=== PATIENT | female | born 1980 | race Caucasian/White ===

== ENCOUNTER 2016-11-16 06:51 | Day surgery (SDC) | payer BC ==
[~2016-11-16 06:51] MED LIST: Dextrose 5%-0.45% NaCl 1,000 ML IV SCH; Midazolam 1 MG/ML 2 ML SDV ONE; Sodium Chloride 0.9% 10 ML Syringe FLUSH PRN; fentaNYL 100 MCG/2 ML SDV ONE
[2016-11-16] MEDS ORDERED: Midazolam 1 MG/ML 2 ML SDV IV ONE ×3 (08:46→14:40)
[2016-11-16] MEDS ORDERED: fentaNYL 100 MCG/2 ML SDV IV ONE ×3 (08:46→14:40)
--- NOTE | 2016-11-16 09:37 | OR ---
DATE: 11/16/2016 PROCEDURE: Esophagogastroduodenoscopy and multiple pinch biopsies. INSTRUMENT USED: GIF-H180 Olympus video panendoscope. PREMEDICATIONS: No oral topical anesthesia used. Fentanyl 100 mcg intravenous, Versed 2 mg intravenous. Nasal O2 cannula. The procedure was done under pulse oximetry, BP recording, and teletypesetter monitor. INDICATION: The patient with persistent abdominal pain, dyspepsia, and bloating, unexplained, and not responsive to medical measures. Esophagogastroduodenoscopy is performed for detection of any active erosive lesions, Krause esophagus and/or malignancy also under consideration, H. pylori status to be determined, small bowel biopsies to be obtained for celiac disease if indicated, endoscopic hemostasis therapy if needed. DESCRIPTION OF PROCEDURE: The scope was passed with ease. Adequate visualization of the esophagus was made from proximal to distal areas. No upper esophageal lesions identified. No distal esophageal stricture. No uphill or downhill esophageal varices. No Kendra-Etienne tear. No evidence of erosive esophagitis by Liberty criteria. No esophageal polyp or tumor mass identified. Z-line was seen at around 40 cm distal to the oral verge, configuration consistent with grade 1 by ZAP classification. No proximal gastric varices noted. Gastric fundus examination by retroflexion showed no polypoid lesions. No gastric ulcer, polyp, tumor mass, or vascular ectasia identified. Duodenal bulb showed some patchy erythema. Visualized second part of the duodenum was unremarkable. Multiple pinch biopsies, 4 in number were taken from different areas of the second part of the duodenum, and tissues were also obtained from duodenal bulb at 9 o'clock and 12 o'clock positions and sent for any histopathologic evidence of celiac disease. Multiple pinch biopsies were obtained from the gastric antrum and proximal body and sent for PyloriTek test for H. pylori and histopathology. No bleeding was noted from any of the visualized areas at the completion of examination. Photographs were taken of the duodenal bulb, gastric antrum, fundus, and distal esophagus. IMPRESSION: Normal study. The patient tolerated the procedure well. [facility] /[id number]
[2016-11-16 11:42] VITALS: BP 126/80
== END 2016-11-16 10:50 | disposition home or self-care (01) ==
LOC: DL.ENDO 06:51
PROVIDERS: ATTEND Internal Medicine Gastroenterology
DX: K29.50 Unspecified chronic gastritis without bleeding (principal); K29.80 Duodenitis without bleeding; K31.89 Other diseases of stomach and duodenum; G43.909 Migraine, unspecified, not intractable, without status migrainosus; E66.9 Obesity, unspecified; Z90.49 Acquired absence of other specified parts of digestive tract; Z98.890 Other specified postprocedural states; Z79.899 Other long term (current) drug therapy
CPT/HCPCS: 43239; 87077; J2250; J3010; J7042

== ENCOUNTER 2018-01-01 14:53 | Emergency (ER) | payer BC ==
[2018-01-01 15:14] VITALS: BP 132/59
[2018-01-01] MEDS ORDERED: Sodium Chloride 0.9% 10 ML Syringe FLUSH PRN (15:23)
[2018-01-01] MEDS ORDERED: Ketorolac 30 MG/ML SDV IVPUSH ONE (15:23)
[2018-01-01] MEDS ORDERED: Diazepam 5 MG/ML 10 ML Vial MDV IVPUSH ONE (15:24)
--- NOTE | 2018-01-01 16:47 | CT ---
Clinical history: 37-year-old 165 pound female severe low back pain. No known trauma. Past history of "kidney stones". TECHNIQUE: Volume acquisition of data emergency unenhanced CT scan of the lumbar spine and sacrum obt ained without oral or IV contrast while patient was lying supine on the Siemens multi slice scanner [place], [place]. All data archived in the PACS system for storage, ref ormatting axial/sagittal/coronal planes and study. Interpretation: *No new abnormality lower thoracic, lumbar spine or sacrum appreciated in the interva l since [address] exam. 1. Homogeneous normal bone density and normal height/alignment of the T12, all 5 lumbar vertebra and the sacrum. 2. No sign of pathologic skeletal lesion. Subtle soft tissue disc "bulge" posteriorly at the L3-4, L4 -5 and L5-S1 levels. 3. No lumbar fracture or spondylolisthesis. No facet joint arthritis. 4. Normal intervertebral disc spacing. Minimal marginal spondylosis L4 vertebra. No other arthritic r eactive changes spine. 5. Symmetric spacing normal-appearing SI and both hip joints. 6. No signs of nephrolithiasis or obstructive uropathy.
--- NOTE | 2018-01-01 17:47 | EDM.PDOC ---
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 Patient states that she had a sudden jolt of low back pain and felt as if her entire back spasmed "locked up". She tried various stretching, over-the- counter analgesics and ice packs with no relief. She went to the chiropractor who told her that her back was to painful for him to help with and suggested that she come to the emergency department. She denies any radiating pain, loss of bowel or bladder control, saddle area of numbness or motor weakness. Onset: Today Duration: Getting Worse Location: Reports: Back Quality: Reports: Ache Severity: Severe Improves with: Reports: None Worsens with: Reports: None Associated Symptoms: Reports: No Other Symptoms Treatments HEALTH INSURANCE AGENT: Reports: NSAIDS Bilateral Middle Back Pain Score (Numeric/FACES): 10 - Related Data Allergies Allergy/AdvReac Type Severity Reaction Status Date / Time codeine Allergy Nausea and Verified 11/16/16 06:47 Vomiting Home Meds: Home Meds Ibuprofen [Motrin] 800 mg PO Q6H PRN 12/23/14 [History] Past Medical History HEENT History: Reports: Impaired Vision, Other (See Below) Other HEENT History: WEARS CORRECTIVE LENS WHEN DRIVING Cardiovascular History: Reports: None Respiratory History: Reports: None Gastrointestinal History: Genitourinary History: Reports: Other (See Below) Other Genitourinary History: NEPHROLITHIASIS [employer]PERATOR History: Reports: Musculoskeletal History: Reports: Back Pain, Chronic Neurological History: Reports: Migraines Psychiatric History: Reports: None Endocrine/Metabolic History: Reports: Obesity/BMI 30+ Hematologic History: Reports: None Immunologic History: Reports: None Oncologic (Cancer) History: Reports: None Dermatologic History: Reports: Cellulitis - Infectious Disease History Infectious Disease History: Reports: Chicken Pox - Past Surgical History Head Surgeries/Procedures: Reports: None Cardiovascular Surgical History: Reports: None Respiratory Surgical History: Reports: None GI Surgical History: Reports: Appendectomy Female Surgical History: Reports: Section, Lithotripsy/ESWL, Other ( See Below) Endocrine Surgical History: Reports: None Neurological Surgical History: Reports: None Musculoskeletal Surgical History: Reports: Other (See Below) Dermatological Surgical History: Reports: None Social & Family History - Family History Family Medical History: Noncontributory - Tobacco Use Smoking Status *Q: Never Smoker Second Hand Smoke Exposure: No - Caffeine Use Caffeine Use: Reports: Soda Other Caffeine Use: [place] DEW BOTTLE FEW TIMES A WEEK - Recreational Drug Use Recreational Drug Use: No - Living Situation & Occupation Living situation: Reports: Occupation: Employed ED ROS GENERAL - Review of Systems Review Of Systems: ROS reveals no pertinent complaints other than HPI. ED EXAM,LOWER BACK PAIN/INJURY - Physical Exam Exam: See Below Exam Limited By: No Limitations General Appearance: Other (uncomfortable appearing) Head: Atraumatic, Normocephalic Neck: Normal Inspection, Supple, Non-Tender, Full Range of Motion Respiratory/Chest: Other (hyperventilation) Cardiovascular: Normal Peripheral Pulses, Regular Rate, Rhythm, No Edema, No Gallop, No JVD, No Murmur, No Rub GI/Abdominal: Normal Bowel Sounds, Soft, Non-Tender, No Organomegaly, No Distention, No Abnormal Bruit, No Mass (Female) Exam: Deferred Rectal (Female) Exam: Deferred Back Exam: Decreased Range of Motion (lumbar), Muscle Spasm (generalized lumbar Rt>Left), Paraspinal Tenderness. No: CVA Tenderness (L), CVA Tenderness (R), Vertebral Tenderness Extremities: Non-Tender, No Pedal Edema, Normal Capillary Refill, Limited Range of Motion (due to back pain). No: Joint Swelling, Trisha's Sign, Leg Pain Neurological: Alert, Normal Dorsiflexion, CN II-XII Intact, Normal Plantar Flexion, Normal Reflexes, No Motor/Sensory Deficits Psychiatric: Anxious, Tearful Skin Exam: Warm, Dry, Intact, Normal Color, No Rash Course - Vital Signs Last Recorded V/S: Last Vital Signs Temp 36.4 C 01/01/18 15:00 Pulse 74 01/01/18 15:00 Resp 26 H 01/01/18 15:00 BP 132/59 L 01/01/18 15:00 Pulse Ox 100 01/01/18 15:00 - Orders/Labs/Meds Orders: Active Orders 24 hr Category Date Time Status Peripheral IV Care [RC] . DIRECTED Care 01/01/18 15:23 Active Sodium Chloride 0.9% [Saline Flush] Med 01/01/18 15:23 Active 10 ml FLUSH ASDIRECTED PRN Peripheral IV Insertion Adult [OM.PC] Stat Oth 01/01/18 15:23 Ordered Medication Orders Sodium Chloride (Saline Flush) 10 ml FLUSH ASDIRECTED PRN PRN Reason: Keep Vein Open Last Admin: 01/01/18 15:52 Dose: 10 ml Meds: Medications Generic Name Dose Route Start Last Admin Trade Name Freq PRN Reason Stop Dose Admin Sodium Chloride 10 ml 01/01/18 15:23 01/01/18 15:52 Saline Flush FLUSH 10 ml ASDIRECTED PRN Administration Keep Vein Open Discontinued Medications Generic Name Dose Route Start Last Admin Trade Name Freq PRN Reason Stop Dose Admin Diazepam 5 mg 01/01/18 15:24 01/01/18 15:49 Valium IVPUSH 01/01/18 15:25 5 mg ONETIME ONE Administration Ketorolac Tromethamine 30 mg 01/01/18 15:23 01/01/18 15:51 Toradol IVPUSH 01/01/18 15:24 30 mg ONETIME ONE Administration - Radiology Interpretation Free Text/Narrative:: CT lumbar spine: No new abnormality lower thoracic, lumbar spine or sacrum appreciated in the interval since November 14, 2016. See rad report. Departure - Departure Time of Disposition: 17:44 Disposition: Home, Self-Care 01 Condition: Fair Clinical Impression: Lumbar paraspinal muscle spasm Acute myofascial strain of lumbosacral region Qualifiers: Encounter type: initial encounter Qualified Code(s): S39.012A - Strain of muscle, fascia and tendon of lower back, initial encounter - Discharge Information Instructions: Lumbosacral Strain Referrals: PCP,None [Primary Care Provider] - Forms: ED Department Discharge Additional Instructions: RX: Decadron 4mg. RX: Diazepam 5mg. * DO NOT DRIVE WHILE UNDER THE INFLUENCE OF THIS MEDICATION. Light activity as tolerated. Follow up with your primary doctor or chiropractor in the next 2 to 3 days. - My Orders Last 24 Hours: My Active Orders 01/01/18 15:23 Peripheral IV Care [RC] . DIRECTED Sodium Chloride 0.9% [Saline Flush] 10 ml FLUSH ASDIRECTED PRN Peripheral IV Insertion Adult [OM.PC] Stat - Assessment/Plan Last 24 Hours: My Active Orders 01/01/18 15:23 Peripheral IV Care [RC] . DIRECTED Sodium Chloride 0.9% [Saline Flush] 10 ml FLUSH ASDIRECTED PRN Peripheral IV Insertion Adult [OM.PC] Stat I have read and agree with the documentation that has been completed regarding this visit. By signing this record, I attest that the documentation was completed in my physical presence and is an accurate record of the encounter.
== END 2018-01-01 17:54 | disposition home or self-care (01) ==
LOC: DL.ED 14:53
DX: S39.012A Strain of muscle, fascia and tendon of lower back, initial encounter (principal); M62.830 Muscle spasm of back; Z88.5 Allergy status to narcotic agent; X50.9XXA Other and unspecified overexertion or strenuous movements or postures, initial encounter
CPT/HCPCS: 72131; 94762; 96374; 96375; 99283; J1885; J3360; J7050